=== PATIENT | female | born 1960 | race Caucasian/White ===

== ENCOUNTER 2016-03-21 18:36 | Emergency (ER) | payer OTHER ==
--- NOTE | 2016-03-21 18:51 | ED CLINICAL REPORT ---
Clinical Report - Physicians/Mid Levels [facility] [address] [place] [address] 03/21/2016 18:38 Patient: ROBERTO SEGOVIA Time Seen: 18:44 Mar 21 2016. Arrived- By private vehicle. HISTORY OF PRESENT ILLNESS Chief Complaint: EARACHE. This started yesterday and is still present. Location- right ear. The pain is described as mild. The patient has had ear pain. No ear drainage, hearing loss or nasal discharge or congestion. (Pt usually wears hearing aids, pt reports pain to r. ear. NO cough. Fevers. Patient with no trauma. Some congestion.). REVIEW OF SYSTEMS No fever, chills, cough, difficulty breathing or nausea. No vomiting. All systems otherwise negative, except as recorded above. SOCIAL HISTORY Never smoker. No alcohol use or drug use. ADDITIONAL NOTES The nursing notes have been reviewed. PHYSICAL EXAM Vital Signs: 03/21/2016 18:47 BP: 133/79. HR: 96. RR: 20. O2 saturation: 98%. Temp: 100.8 F. Appearance: Alert. Eyes: Eyes normal inspection. Throat: Pharynx normal. No mouth ulcerations or tonsillar exudate. Ear (right): There is erythema of the tympanic membrane. Neck: Normal inspection. Neck supple. No meningeal signs or lymphadenopathy. CVS: Normal heart rate and rhythm. Heart sounds normal. Respiratory: No respiratory distress. Breath sounds normal. Skin: Skin warm. Normal skin color. Neuro: Oriented X 3. PROGRESS AND PROCEDURES Course of Care: pt in the er is febrile, with signs of tm erythema, with no mastoid tenderness. Pt is very stable. No lymphadneopathy. No external erythema. TM intact. Patient is stable. Symptoms better. Patient/family counseled. Disposition: Discharged. CLINICAL IMPRESSION Acute right otitis media. INSTRUCTIONS Drink plenty of fluids. (do not wear a hearing aid steam/ humidified air Benadryl at night time). Prescription Medications: Amoxicillin 500 mg tablets: take 1 orally every 8 hours for 10 days. No refills. Follow-up: Follow up with your doctor in three days. (Electronically signed by Neena Nguyen P.A.-C 03/21/2016 18:55)
--- NOTE | 2016-03-21 18:51 | ED NURSING NOTES ---
Clinical Report - Nurses [facility] [address] [place] [address] 03/21/2016 18:38 Patient: ROBERTO SEGOVIA TRIAGE 18:47 03/21/16. BP: 133/79. HR: 96. RR: 20. O2 saturation: 98%. Temp: 100.8 F. --18:52 Amy Toribio R.N. Triage time 18:47 Mar 21 2016. Acuity: LEVEL 4. Chief Complaint: FEVER and SORE THROAT. Alert. No acute distress. --18:52 Amy Toribio R.N. Weight: 68 kg stated. Height/Length: 63 inches Per Patient. BMI: 26.6. --18:47 Amy Toribio R.N. Medications None. --18:50 Amy Toribio R.N. Medication/allergy information source: the patient. --18:52 Amy Toribio R.N. Allergies No Known Drug Allergy. --18:49 Amy Toribio R.N. History Arrived by private vehicle. Historian: patient. Primary physician (none). ( Dry Cough, Fever, Right Ear Pain). Onset. (2 days). 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 PAST MEDICAL HX: Has not received seasonal influenza immunization. SOCIAL HX: Never smoker. No alcohol use or drug use. No recent travel. No infectious disease exposure. No known contact with a sick individual. FALL RISK ASSESSMENT: Fall risk assessment completed. No fall risk identified. NUTRITIONAL RISK ASSESSMENT: The nutritional risk assessment revealed no deficiencies. FUNCTIONAL ASSESSMENT: Functional assessment: no impairments noted. LEARNING NEEDS ASSESSMENT: The learning needs assessment revealed no barriers. SKIN INTEGRITY ASSESSMENT: Skin integrity risk assessment completed. No skin integrity risk identified. --18:52 Amy Toribio R.N. PROBLEMS: Deaf. --18:51 Amy Toribio R.N. ADDITIONAL SURGERIES: Hysterectomy. Tear on Retina Right. Tonsillectomy. --18:51 Amy Toribio R.N. Interventions ID band on patient. To room. --18:52 Amy Toribio R.N. PHYSICAL ASSESSMENT Ambulatory to room. GENERAL / NEURO / PSYCH: Oriented X 4. Appears in no acute distress. HEENT: Pupils equal, round and reactive to light. ( right ear pain). CVS: Capillary refill less than 2 seconds. SKIN: Skin is warm and dry. --18:52 Amy Toribio R.N. NURSING PROGRESS NOTES ( pt has been seen by the PA.). --18:52 Amy Toribio R.N. Locked/Released at 03/21/2016 19:02 by Amy Toribio R.N.
--- NOTE | 2016-03-21 18:51 | ED NURSING NOTES ---
Clinical Report - Nurses [facility] [address] [place] [address] 03/21/2016 18:38 Patient: ROBERTO SEGOVIA TRIAGE 18:47 03/21/16. BP: 133/79. HR: 96. RR: 20. O2 saturation: 98%. Temp: 100.8 F. --18:52 Amy Toribio R.N. Triage time 18:47 Mar 21 2016. Acuity: LEVEL 4. Chief Complaint: FEVER and SORE THROAT. Alert. No acute distress. --18:52 Amy Toribio R.N. Weight: 68 kg stated. Height/Length: 63 inches Per Patient. BMI: 26.6. --18:47 Amy Toribio R.N. Medications None. --18:50 Amy Toribio R.N. Medication/allergy information source: the patient. --18:52 Amy Toribio R.N. Allergies No Known Drug Allergy. --18:49 Amy Toribio R.N. History Arrived by private vehicle. Historian: patient. Primary physician (none). ( Dry Cough, Fever, Right Ear Pain). Onset. (2 days). 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 PAST MEDICAL HX: Has not received seasonal influenza immunization. SOCIAL HX: Never smoker. No alcohol use or drug use. No recent travel. No infectious disease exposure. No known contact with a sick individual. FALL RISK ASSESSMENT: Fall risk assessment completed. No fall risk identified. NUTRITIONAL RISK ASSESSMENT: The nutritional risk assessment revealed no deficiencies. FUNCTIONAL ASSESSMENT: Functional assessment: no impairments noted. LEARNING NEEDS ASSESSMENT: The learning needs assessment revealed no barriers. SKIN INTEGRITY ASSESSMENT: Skin integrity risk assessment completed. No skin integrity risk identified. --18:52 Amy Toribio R.N. PROBLEMS: Deaf. --18:51 Amy Toribio R.N. ADDITIONAL SURGERIES: Hysterectomy. Tear on Retina Right. Tonsillectomy. --18:51 Amy Toribio R.N. Interventions ID band on patient. To room. --18:52 Amy Toribio R.N. PHYSICAL ASSESSMENT Ambulatory to room. GENERAL / NEURO / PSYCH: Oriented X 4. Appears in no acute distress. HEENT: Pupils equal, round and reactive to light. ( right ear pain). CVS: Capillary refill less than 2 seconds. SKIN: Skin is warm and dry. --18:52 Amy Toribio R.N. NURSING PROGRESS NOTES ( pt has been seen by the PA.). --18:52 Amy Toribio R.N. Locked/Released at 03/21/2016 19:02 by Amy Toribio R.N.
--- NOTE | 2016-03-21 18:51 | ED CLINICAL REPORT ---
Clinical Report - Physicians/Mid Levels [facility] [address] [place] [address] 03/21/2016 18:38 Patient: ROBERTO SEGOVIA Time Seen: 18:44 Mar 21 2016. Arrived- By private vehicle. HISTORY OF PRESENT ILLNESS Chief Complaint: EARACHE. This started yesterday and is still present. Location- right ear. The pain is described as mild. The patient has had ear pain. No ear drainage, hearing loss or nasal discharge or congestion. (Pt usually wears hearing aids, pt reports pain to r. ear. NO cough. Fevers. Patient with no trauma. Some congestion.). REVIEW OF SYSTEMS No fever, chills, cough, difficulty breathing or nausea. No vomiting. All systems otherwise negative, except as recorded above. SOCIAL HISTORY Never smoker. No alcohol use or drug use. ADDITIONAL NOTES The nursing notes have been reviewed. PHYSICAL EXAM Vital Signs: 03/21/2016 18:47 BP: 133/79. HR: 96. RR: 20. O2 saturation: 98%. Temp: 100.8 F. Appearance: Alert. Eyes: Eyes normal inspection. Throat: Pharynx normal. No mouth ulcerations or tonsillar exudate. Ear (right): There is erythema of the tympanic membrane. Neck: Normal inspection. Neck supple. No meningeal signs or lymphadenopathy. CVS: Normal heart rate and rhythm. Heart sounds normal. Respiratory: No respiratory distress. Breath sounds normal. Skin: Skin warm. Normal skin color. Neuro: Oriented X 3. PROGRESS AND PROCEDURES Course of Care: pt in the er is febrile, with signs of tm erythema, with no mastoid tenderness. Pt is very stable. No lymphadneopathy. No external erythema. TM intact. Patient is stable. Symptoms better. Patient/family counseled. Disposition: Discharged. CLINICAL IMPRESSION Acute right otitis media. INSTRUCTIONS Drink plenty of fluids. (do not wear a hearing aid steam/ humidified air Benadryl at night time). Prescription Medications: Amoxicillin 500 mg tablets: take 1 orally every 8 hours for 10 days. No refills. Follow-up: Follow up with your doctor in three days. (Electronically signed by Neena Nguyen P.A.-C 03/21/2016 18:55)
--- NOTE | 2016-03-21 19:03 | ED MAR SUMMARY ---
..... Medication Administration Record [facility] [address] [place], [place] [id number] Patient: ROBERTO SEGOVIA Visit ID: [id number] 55y, F Weight: 68.0 kg Height/Length: 63 in BMI: 26.6 ALLERGIES: No Known Drug Allergy
--- NOTE | 2016-03-21 19:03 | ED MAR SUMMARY ---
..... Medication Administration Record [facility] [address] [place], [place] [id number] Patient: ROBERTO SEGOVIA Visit ID: [id number] 55y, F Weight: 68.0 kg Height/Length: 63 in BMI: 26.6 ALLERGIES: No Known Drug Allergy
--- NOTE | 2016-03-21 19:03 | ED MED RECONCILIATION SUMMARY ---
Patient: ROBERTO SEGOVIA Medication Reconciliation Report [facility] VisitID: [id number] [address] [place] [address] 55y, F Registration Date/Time: 03/21/2016 Weight: 68.0 kg Height/Length: 63 in. BMI: 26.6 ALLERGIES: No Known Drug Allergy The patient's Home Medications are listed below: NONE. The source(s) of the original Home Medication information: patient The following Medications were given to the patient in the Emergency Department: None. The following Medications were prescribed to the patient: Amoxicillin 500 mg tablets: take 1 orally every 8 hours for 10 days. No refills. -- Neena Nguyen, JassiC
--- NOTE | 2016-03-21 19:03 | ED MED RECONCILIATION SUMMARY ---
Patient: ROBERTO SEGOVIA Medication Reconciliation Report [facility] VisitID: [id number] [address] [place] [address] 55y, F Registration Date/Time: 03/21/2016 Weight: 68.0 kg Height/Length: 63 in. BMI: 26.6 ALLERGIES: No Known Drug Allergy The patient's Home Medications are listed below: NONE. The source(s) of the original Home Medication information: patient The following Medications were given to the patient in the Emergency Department: None. The following Medications were prescribed to the patient: Amoxicillin 500 mg tablets: take 1 orally every 8 hours for 10 days. No refills. -- Neena Nguyen, JassiC
--- NOTE | 2016-03-21 19:03 | ED DISCHARGE INSTRUCTIONS ---
Patient: ROBERTO SEGOVIA General Instructions [facility] VisitID: [id number] [place] [address] 55y, F Registration Date/Time: 03/21/2016 Acute right otitis media. INSTRUCTIONS Drink plenty of fluids. (do not wear a hearing aid steam/ humidified air Benadryl at night time). Prescription Medications: Amoxicillin 500 mg tablets: take 1 orally every 8 hours for 10 days. No refills. Follow-up: Follow up with your doctor in three days. ADDITIONAL INFORMATION Middle Ear Infection (Adult) You have an infection of the middle ear (the space behind the eardrum). It can occur as a result of the common cold. This is because congestion can block the internal passage (eustachian tube) that drains fluid from the middle ear. When the middle ear fills with fluid, bacteria can grow there and cause an infection. Oral antibiotics are used to treat this illness, not ear drops. Symptoms usually start to improve within 1-2 days of treatment. Home Care: Finish all of the antibiotic medicine prescribed, even though you may feel better after the first few days. You may use acetaminophen (Tylenol) or ibuprofen (Motrin, Advil) to control pain, unless something else was prescribed. [NOTE: If you have chronic liver or kidney disease or have ever had a stomach ulcer or GI bleeding, talk with your doctor before using these medicines.] (Do not give aspirin to anyone under 18 years of age who is ill with a fever. It may cause severe liver damage.) Follow Up with your doctor or this facility in two weeks if all symptoms have not cleared, or if hearing does not return to normal within one month. Get Prompt Medical Attention if any of the following occur: Ear pain gets worse or does not improve after three days of treatment Unusual drowsiness or confusion Neck pain, stiff neck or headache Fluid or blood draining from the ear canal Fever of 100.4F (38C) or higher after 3 days of antibiotics, or as directed by your healthcare provider Convulsion (seizure) Amoxicillin Trihydrate Oral tablet What is this medicine? AMOXICILLIN (a mox i GONZALEZ in) is a penicillin antibiotic. It is used to treat certain kinds of bacterial infections. It will not work for colds, flu, or other viral infections. How should I use this medicine? Take this medicine by mouth with a glass of water. Follow the directions on your prescription label. You may take this medicine with food or on an empty stomach. Take your medicine at regular intervals. Do not take your medicine more often than directed. Take all of your medicine as directed even if you think your are better. Do not skip doses or stop your medicine early. Talk to your tar heater regarding the use of this medicine in children. While this drug may be prescribed for selected conditions, precautions do apply. What side effects may I notice from receiving this medicine? Side effects that you should report to your doctor or health child care assistant as soon as possible: allergic reactions like skin rash, itching or hives, swelling of the face, lips, or tongue breathing problems dark urine redness, blistering, peeling or loosening of the skin, including inside the mouth seizures severe or watery diarrhea trouble passing urine or change in the amount of urine unusual bleeding or bruising unusually weak or tired yellowing of the eyes or skin Side effects that usually do not require medical attention (report to your doctor or health child care assistant if they continue or are bothersome): dizziness headache stomach upset trouble sleeping What may interact with this medicine? amiloride control pills chloramphenicol macrolides probenecid sulfonamides tetracyclines What if I miss a dose? If you miss a dose, take it as soon as you can. If it is almost time for your next dose, take only that dose. Do not take double or extra doses. Where should I keep my medicine? Keep out of the reach of children. Store between 68 and 77 degrees F (20 and 25 degrees C). Keep bottle closed tightly. Throw away any unused medicine after the expiration date. What should I tell my health care provider before I take this medicine? They need to know if you have any of these conditions: asthma kidney disease an unusual or allergic reaction to amoxicillin, other penicillins, cephalosporin antibiotics, other medicines, foods, dyes, or preservatives or trying to get breast-feeding What should I watch for while using this medicine? Tell your doctor or health child care assistant if your symptoms do not improve in 2 or 3 days. Take all of the doses of your medicine as directed. Do not skip doses or stop your medicine early. If you are diabetic, you may get a false positive result for sugar in your urine with certain brands of urine tests. Check with your doctor. Do not treat diarrhea with [id number] products. Contact your doctor if you have diarrhea that lasts more than 2 days or if the diarrhea is severe and watery. You have been given the following additional information: Otitis Media, Abx Tx (Adult) Amoxicillin Trihydrate Oral tablet (Electronically signed by Neena Nguyen P.A.-C 03/21/2016 18:55)
--- NOTE | 2016-03-21 19:03 | ED DISCHARGE INSTRUCTIONS ---
Patient: ROBERTO SEGOVIA General Instructions [facility] VisitID: [id number] [place] [address] 55y, F Registration Date/Time: 03/21/2016 Acute right otitis media. INSTRUCTIONS Drink plenty of fluids. (do not wear a hearing aid steam/ humidified air Benadryl at night time). Prescription Medications: Amoxicillin 500 mg tablets: take 1 orally every 8 hours for 10 days. No refills. Follow-up: Follow up with your doctor in three days. ADDITIONAL INFORMATION Middle Ear Infection (Adult) You have an infection of the middle ear (the space behind the eardrum). It can occur as a result of the common cold. This is because congestion can block the internal passage (eustachian tube) that drains fluid from the middle ear. When the middle ear fills with fluid, bacteria can grow there and cause an infection. Oral antibiotics are used to treat this illness, not ear drops. Symptoms usually start to improve within 1-2 days of treatment. Home Care: Finish all of the antibiotic medicine prescribed, even though you may feel better after the first few days. You may use acetaminophen (Tylenol) or ibuprofen (Motrin, Advil) to control pain, unless something else was prescribed. [NOTE: If you have chronic liver or kidney disease or have ever had a stomach ulcer or GI bleeding, talk with your doctor before using these medicines.] (Do not give aspirin to anyone under 18 years of age who is ill with a fever. It may cause severe liver damage.) Follow Up with your doctor or this facility in two weeks if all symptoms have not cleared, or if hearing does not return to normal within one month. Get Prompt Medical Attention if any of the following occur: Ear pain gets worse or does not improve after three days of treatment Unusual drowsiness or confusion Neck pain, stiff neck or headache Fluid or blood draining from the ear canal Fever of 100.4F (38C) or higher after 3 days of antibiotics, or as directed by your healthcare provider Convulsion (seizure) Amoxicillin Trihydrate Oral tablet What is this medicine? AMOXICILLIN (a mox i GONZALEZ in) is a penicillin antibiotic. It is used to treat certain kinds of bacterial infections. It will not work for colds, flu, or other viral infections. How should I use this medicine? Take this medicine by mouth with a glass of water. Follow the directions on your prescription label. You may take this medicine with food or on an empty stomach. Take your medicine at regular intervals. Do not take your medicine more often than directed. Take all of your medicine as directed even if you think your are better. Do not skip doses or stop your medicine early. Talk to your laborer aquatic life regarding the use of this medicine in children. While this drug may be prescribed for selected conditions, precautions do apply. What side effects may I notice from receiving this medicine? Side effects that you should report to your doctor or health occasional caregiver as soon as possible: allergic reactions like skin rash, itching or hives, swelling of the face, lips, or tongue breathing problems dark urine redness, blistering, peeling or loosening of the skin, including inside the mouth seizures severe or watery diarrhea trouble passing urine or change in the amount of urine unusual bleeding or bruising unusually weak or tired yellowing of the eyes or skin Side effects that usually do not require medical attention (report to your doctor or health occasional caregiver if they continue or are bothersome): dizziness headache stomach upset trouble sleeping What may interact with this medicine? amiloride control pills chloramphenicol macrolides probenecid sulfonamides tetracyclines What if I miss a dose? If you miss a dose, take it as soon as you can. If it is almost time for your next dose, take only that dose. Do not take double or extra doses. Where should I keep my medicine? Keep out of the reach of children. Store between 68 and 77 degrees F (20 and 25 degrees C). Keep bottle closed tightly. Throw away any unused medicine after the expiration date. What should I tell my health care provider before I take this medicine? They need to know if you have any of these conditions: asthma kidney disease an unusual or allergic reaction to amoxicillin, other penicillins, cephalosporin antibiotics, other medicines, foods, dyes, or preservatives or trying to get breast-feeding What should I watch for while using this medicine? Tell your doctor or health occasional caregiver if your symptoms do not improve in 2 or 3 days. Take all of the doses of your medicine as directed. Do not skip doses or stop your medicine early. If you are diabetic, you may get a false positive result for sugar in your urine with certain brands of urine tests. Check with your doctor. Do not treat diarrhea with [id number] products. Contact your doctor if you have diarrhea that lasts more than 2 days or if the diarrhea is severe and watery. You have been given the following additional information: Otitis Media, Abx Tx (Adult) Amoxicillin Trihydrate Oral tablet (Electronically signed by Neena Nguyen P.A.-C 03/21/2016 18:55)
== END 2016-03-21 19:00 | disposition home or self-care (01) ==
LOC: ED SRH 18:36
DX: H66.91 Otitis media, unspecified, right ear (principal)